=== PATIENT | female | born 1975 | race Caucasian/White ===

== ENCOUNTER 2016-10-18 06:09 | Day surgery (SDC) | payer OTHER ==
[2016-10-16 11:18] LABS: HEMATOCRIT 42.3 % (36.0-47.0); HEMOGLOBIN 13.7 g/dL (12.0-15.5); HGB HCT DIFFERENCE -1.2; MEAN CORPUSCULAR HEMOGLOBIN 29.3 pg (27.0-33.4); MEAN CORPUSCULAR HGB CONC 32.3 g/dL (32.0-36.0); MEAN CORPUSCULAR VOLUME 91 fl (80-97); RED BLOOD COUNT 4.66 10^6/uL (3.72-5.28); RED CELL DISTRIBUTION WIDTH 13.6 % (11.5-14.0); WHITE BLOOD COUNT 5.8 10^3/uL (4.0-10.5)
[2016-10-16 11:21] LABS: APPEARANCE,URINE CLEAR; BILIRUBIN,URINE NEGATIVE (NEGATIVE); GLUCOSE, URINE NEGATIVE (NEGATIVE); KETONES,URINE NEGATIVE (NEGATIVE); LEUKOCYTE ESTERASE,URINE NEGATIVE (NEGATIVE); NITRITE,URINE NEGATIVE (NEGATIVE); PROTEIN,URINE NEGATIVE (NEGATIVE); URINE SPECIFIC GRAVITY 1.003; UROBILINOGEN,URINE NEGATIVE mg/dL (<2.0)
[2016-10-16 11:37] LABS: ANION GAP 9 (5-19); BLOOD UREA NITROGEN 12 mg/dL (7-20); CARBON DIOXIDE 28 mmol/L (22-30); CHLORIDE 103 mmol/L (98-107); CREATININE RESULT 0.68 mg/dL (0.52-1.25); GLUCOSE 57 mg/dL (75-110); POTASSIUM 4.3 mmol/L (3.6-5.0); SODIUM 140.2 mmol/L (137-145)
[~2016-10-18 06:09] MED LIST: CEFAZOLIN 1 GM/D5W RTU 1 GM/50 ML RTUPB IV PRN; LACTATED RINGERS 1000 ML IV PRN; LIDOCAINE 0.5% INJ-PF (5 MG/ML) 50 ML SDV SUBCUT PRN
[2016-10-18] MEDS ORDERED: SCOPOLAMINE HYDROBROMIDE 1.5 MG PATCH.TD72 ONE (07:29)
[2016-10-18] MEDS ORDERED: RINGERS SOLUTION,LACTATED 500 ML IV ONE (08:00)
[2016-10-18] MEDS ORDERED: LIDOCAINE 2% INJ-PF (100 MG/5 ML) SYRINGE ONE (08:12)
[2016-10-18] MEDS ORDERED: MIDAZOLAM 2 MG/2 ML INJ ONE (08:13)
[2016-10-18] MEDS ORDERED: PROPOFOL INJ 200 MG/20 ML VIAL IV ONE (08:13)
[2016-10-18] MEDS ORDERED: FENTANYL CITRATE INJ/PF 100 MCG/2 ML AMPUL ONE ×3 (08:13→09:19)
[2016-10-18] MEDS ORDERED: LIDOCAINE 1% INJ-PF (10 MG/ML) 30 ML SDV ONE (08:14)
[2016-10-18] MEDS ORDERED: DEXMEDETOMIDINE INJ 80 MCG/20 ML VIAL IV ONE (08:39)
[2016-10-18] MEDS ORDERED: FENTANYL CITRATE INJ/PF 100 MCG/2 ML AMPUL IV PRN ×2 (08:46)
[2016-10-18] MEDS ORDERED: DIPHENHYDRAMINE HCL 50 MG/ML VIAL IV PRN (08:46)
[2016-10-18] MEDS ORDERED: ONDANSETRON HCL INJ/PF 4 MG/2 ML SDV IV PRN (08:46)
[2016-10-18] MEDS ORDERED: MEPERIDINE HCL/PF INJ 25 MG/1 ML DISP.SYRIN IV PRN (08:46)
--- NOTE | 2016-10-18 09:18 | OPERATIVE REPORT E ---
Operative Report NAME: ROLA BROOKS : 1975 AGE: 41Y DATE OF SURGERY: 10/18/2016 ROOM: PREOPERATIVE DIAGNOSIS: Menorrhagia. POSTOPERATIVE DIAGNOSIS: Menorrhagia. PROCEDURE Hysteroscopy and NovaSure ablation. SURGEON: MAINOR KIRKPATRICK M.D. COMPLICATIONS: None. ANESTHESIA: LMAC. FINDINGS: Normal endometrial cavity. No adnexal masses appreciated on exam under anesthesia. Bladder was left undrained. INDICATIONS FOR PROCEDURE: Patient had abnormal uterine bleeding unresponsive to outpatient management. Uterine measurements were 6 cm length, 4.5 cm width. Approximately 140 watt seconds of power was used for 2 minutes. PROCEDURE: The patient was taken to the operating room and placed in the modified lithotomy position and adequate anesthesia ascertained. Prepped and draped in the usual manner for a hysteroscopy. Local, approximately 8 mL of 1% lidocaine, was placed under sterile technique. Single-toothed tenaculum placed on the anterior lip of the cervix. The cervix was measured and dilated to admit an operative hysteroscope. Normal endometrial cavity was encountered. No polyps or fibroids were appreciated. NovaSure device was deployed. Uterine integrity was confirmed. The device was fired. The instrument was removed. Re-hysteroscopy demonstrated good burn throughout and a good uterine integrity. At completion of procedure, all sponge and needle counts were correct. Patient taken to recovery in stable condition. The usual risks of bleeding, infection, anesthesia, damage to organs or tissues have been discussed with the patient who understood. DICTATING PHYSICIAN: MAINOR KIRKPATRICK M.D. [id number] PHY#: [id number] ID: [id number] JOB#: [id number] ACCT: [id number] cc:MAINOR KIRKPATRICK M.D. >
[2016-10-18] MEDS ORDERED: ACETAMINOPHEN 100 ML IV ONE (09:20)
[2016-10-18] MEDS ORDERED: KETOROLAC TROMETHAMINE INJ/PF 30 MG/1 ML SDV ONE (09:20)
[2016-10-18] MEDS ORDERED: OXYCODONE-ACETAMINOPHEN 5-325 MG TABLET PO PRN (09:26)
[2016-10-18] MEDS ORDERED: MORPHINE SULFATE 10 MG/ML INJ INJ PRN (09:27)
[2016-10-18] MEDS ORDERED: PROMETHAZINE HCL INJ 25 MG/1 ML VIAL IM PRN (09:28)
[2016-10-18] MEDS ORDERED: IBUPROFEN 800 MG TABLET PO SCH (10:00)
[2016-10-18 11:10] VITALS: BP 112/56
== END 2016-10-18 10:50 | disposition home or self-care (01) ==
LOC: OROUT 06:09
PROVIDERS: ATTEND Specialist
PROC: 0U5B8ZZ Destruction of Endometrium, Via Natural or Artificial Opening Endoscopic (ICD-10-PCS; principal; 2016-10-18 08:00)
DX: N92.0 Excessive and frequent menstruation with regular cycle (principal); G43.909 Migraine, unspecified, not intractable, without status migrainosus; F90.9 Attention-deficit hyperactivity disorder, unspecified type; Z79.899 Other long term (current) drug therapy
CPT/HCPCS: 86900; 86901; 36415; 86850; 82962; 85027; 81025; 80048; 81001; 58563; J2250; J3010; J3490 ×2; J2001; J1885; J2704; J0131; 952